=== PATIENT | male | born 1955 | race Caucasian/White ===

== ENCOUNTER 2017-01-15 06:39 | Emergency (ER) | payer OTHER ==
[~2017-01-15] VITALS: Ht 180.3 cm; Wt 105.2 kg
[~2017-01-15 06:39] MED LIST: AMLODIPINE10 MG PO; ASPIRIN CHILDRE81 MG PO; BACTRIM DS 8001 TAB PO; CIPRO 500MG TA500 MG PO; CYCLOBENZAPRINE10 M1 PO; FENTANYL TR50 MCG/HR TOP; FUROSEMIDE20 MG PO; KETOROLAC TROME10 M1 PO; OXYCODONE HCL5 M1 PO; OXYCODONE HCL5 M2 PO; OXYCODONE HYDRO15 MG PO; PANTOPRAZOLE SO40 M1 PO; TOPROL XL 25MG25 MG PO
[2017-01-15] MEDS ORDERED: GABAPENTIN100 M2 PO (06:52)
[2017-01-15] MEDS ORDERED: METOPROLOL SUC100 M2 PO (06:52)
[2017-01-15] MEDS ORDERED: LYRICA150 M1 PO (06:53)
[2017-01-15] MEDS ORDERED: BROMPHENIR-PSE118 ML PO (06:54)
[2017-01-15] MEDS ORDERED: AMLODIPINE BESY10 M1 PO (06:56)
--- NOTE | 2017-01-15 07:22 | ED GENERAL ADULT ---
History of Present Illness General Chief Complaint: General Adult Stated Complaint: PT AMB TO [facility] STATES LEG HURTS CANT WALK,C/P Source: patient, old records Exam Limitations: no limitations Vital Signs & Intake/Output Vital Signs & Intake/Output Vital Signs Date Time Temp Pulse Resp B/P Pulse O2 O2 Flow FiO2 Ox Delivery Rate 01/15 1102 62 16 166/78 99 Room Air 01/15 0849 97.8 70 18 172/80 100 Room Air 01/15 0650 Room Air 01/15 0650 97.2 72 20 177/87 99 Room Air Allergies Coded Allergies: Penicillins (UNKNOWN SINCE CHILDHOOD 07/03/16) Reconcile Medications Amlodipine Besylate (Amlodipine) 10 MG TABLET 1 TAB PO DAILY BP (Reported) Amlodipine Besylate 10 MG TABLET 1 TAB PO DAILY HTN (Reported) Brompheniramine/Pseudoephed/Dm (Hkqjvukcia-Zwwolfdqwvv-Nd Syr) 2 MG-30 MG-10 MG/ 5 ML SYRUP 5 ML PO Q6 SORE THROAT (Reported) Gabapentin 100 MG CAPSULE 1 CAP PO TID NERVE PAIN (Reported) Metoprolol Succ XL (Toprol XL 25MG) 50 MG TAB.ER.24H 1 TAB PO DAILY BP ( Reported) Metoprolol Succinate 100 MG TAB.ER.24H 1 TAB PO DAILY HTN (Reported) Oxycodone HCl 5 MG CAPSULE 1 CAP PO Q6P PAIN Oxycodone HCl 5 MG TABLET 1 TAB PO BIDP PRN PAIN Pantoprazole Sodium 40 MG TABLET.DR 1 TAB PO DAILY GI (Reported) Pregabalin (Lyrica) 150 MG CAPSULE 1 CAP PO BID COPD (Reported) Triage Note: PT TO TRIAGE C/O LEG PAIN, R ARM PAIN, BACK PAIN, AND CHEST PAIN. PT HAS HX OF ARTHRITIS AND IS TAKING GABAPENTIN. Triage Nurses Notes Reviewed? yes HPI: Patient has known neuropathy and was recently started on Neurontin for it. Patient also has chronic back pain secondary to stenosis. Patient has been having increasing pain in his back and states that the neuropathy is getting worse. Patient has been trying to see pain management but has been unable to see anybody yet. The pain in his back is in his low back that increases with movement. There is no radiation. The pain is constant. The pain is sharp and aching in nature. He rates the pain as 8 out of 10. Patient also states that for the past 2 days he has been getting intermittent tightness in the right side of his chest which radiates to his right arm. Patient states that he feels short of breath when he gets these symptoms. The tightness lasts approximately 4-5 hours before he goes away. There are no aggravating or mitigating factors. He rates the tightness as 4 out of 10. Past History Travel History Traveled to [place] past 21 day No Medical History Any Pertinent Medical History? see below for history Neurological: NONE EENT: NONE Cardiovascular: hypertension Respiratory: COPD Gastrointestinal: NONE Hepatic: NONE Renal: NONE Musculoskeletal: gout, ARTHRITIS KNEE ISSUES, CCPD RIGHT KNEE Psychiatric: NONE Endocrine: NONE Blood Disorders: HEP C Tetanus Vaccine: 08/20/14 Surgical History Surgical History: non-contributory Psychosocial History What is your primary language Urdu Tobacco Use: Current Daily Use Daily Tobacco Use Amount/Type: => 5 Cigarettes daily ETOH Use: occasional use Illicit Drug Use: denies illicit drug use Family History Hx Contributory? No Review of Systems Review of Systems Constitutional: Reports: no symptoms. EENTM: Reports: no symptoms. Respiratory: Reports: no symptoms. Cardiovascular: Reports: see HPI, chest pain. GI: Reports: no symptoms. Genitourinary: Reports: no symptoms. Musculoskeletal: Reports: see HPI, joint pain, muscle pain. Skin: Reports: no symptoms. Neurological/Psychological: Reports: see HPI. Hematologic/Endocrine: Reports: no symptoms. Immunologic/Allergic: Reports: no symptoms. All Other Systems: Reviewed and Negative Physical Exam Physical Exam General Appearance: well developed/nourished, alert, awake, anxious, mild distress Head: atraumatic, normal appearance Eyes: Bilateral: PERRL, EOMI. Ears, Nose, Throat: normal pharynx, normal ENT inspection, hearing grossly normal Neck: normal inspection, supple, full range of motion, no midline tenderness Respiratory: normal breath sounds, chest non-tender, no respiratory distress, lungs clear Cardiovascular: regular rate/rhythm, normal peripheral pulses Gastrointestinal: normal bowel sounds, soft, non-tender, no organomegaly Back: normal inspection, normal range of motion Extremities: normal inspection, normal capillary refill, normal range of motion, no edema Neurologic/Psych: awake, alert, oriented x 3, normal mood/affect, DECREASED SENSATION B/L LE FROM ANKLES TO FEET. Skin: intact, normal color, warm/dry Lymphatic: no anterior cervical charbel Core Measures ACS in differential dx? Yes ASA ordered for poss ACS? No-ACS ruled out CVA/TIA Diagnosis: No Severe Sepsis Present: No Septic Shock Present: No Progress Differential Diagnoses I considered the following diagnoses in my evaluation of the patient: [AMI, PE, NEUROPATHY, ACUTE EXACERBATION OF CHRONIC PAIN.] Plan of Care: Orders Procedure Date/time Status Heart Healthy Diet 01/15 L Active TROPONIN LEVEL 01/15 1039 Complete EKG 01/15 1039 Active TROPONIN LEVEL 01/15 0651 Complete LIPASE 01/15 0651 Complete HEPATIC FUNCTION PANEL 01/15 0651 Complete D-DIMER 01/15 0651 Complete CBC WITHOUT DIFFERENTIAL 01/15 651 Complete BASIC METABOLIC PANEL 01/15 651 Complete AMYLASE 01/15 06 Complete EKG 01/15 0641 Active Laboratory Tests 01/15/17 1100: Troponin I < 0.01 01/15/17 0704: Anion Gap 12, Estimated GFR > 60, BUN/Creatinine Ratio 26.3 H, Glucose 134 H, Calcium 9.4, Total Bilirubin 0.9, Direct Bilirubin 0.4, AST 51, ALT 36, Alkaline Phosphatase 81, Troponin I < 0.01, Total Protein 8.3 H, Albumin 4.4, Amylase 57 , Lipase 244, D-Dimer 536 H, CBC w Diff NO MAN DIFF REQ, RBC 4.70, MCV 93.1, MCH 32.2 H, RDW 12.9, MPV 7.5, Gran % 51.0, Lymphocytes % 36.9, Monocytes % 8.4 , Eosinophils % 3.0, Basophils % 0.7, Absolute Granulocytes 3.3, Absolute Lymphocytes 2.4, Absolute Monocytes 0.5, Absolute Eosinophils 0.2, Absolute Basophils 0, PUBS MCHC 34.5 Diagnostic Imaging: Viewed by Me: Radiology Read. Discussed w/RAD: Radiology Read. Radiology Impression: PATIENT: KENZIE HIDALGO PRESENT AGE: 62 PATIENT ACCOUNT NO: [id number] : 56 LOCATION: [facility] ORDERING PHYSICIAN: JASS RODRÍGUEZ MD SERVICE DATE: 01/15/170754 EXAM TYPE: CAT - CTA CHEST-PULMONARY EMBOLISM EXAMINATION: CT ANGIOGRAM CHEST WITHOUT AND WITH CONTRAST (CT PULMONARY ANGIOGRAM FOR PE) CLINICAL INFORMATION: Chest pain, dyspnea and positive D-dimer. COMPARISON: None TECHNIQUE: Prior to contrast administration, noncontrast localization images were obtained. Subsequently, multidetector volumetric imaging was performed from the thoracic inlet to below the diaphragms following the administration of 95 mL Optiray 350 intravenous contrast. No contrast reaction reported Sagittal, coronal, and MIP oblique sagittal reformatted images were obtained on the CT workstation, uploaded to PACS, and reviewed. TOTAL EXAM DLP: 585 mGy-cm FINDINGS: QUALITY OF STUDY/CONTRAST BOLUS: Excellent. PULMONARY ARTERIES: No central or segmental pulmonary emboli. THORACIC AORTA: No aneurysm or dissection. LUNG: Both lungs are well inflated. There is a patchy ill-defined density right upper lobe, image 117 series 4; focal ground-glass density left upper lobe, image 184 series 4; 4 mm linear density right minor fissure, image 207 series 4; 4 mm nodule right upper lobe, image 122 series 4; and patchy atelectasis right middle lobe, image 325 series 4. PLEURA: No pleural effusion or pneumothorax. MEDIASTINUM: Normal heart size. No pericardial effusion. No hilar or mediastinal lymphadenopathy. No evidence of septal bowing or right heart strain. CHEST WALL/AXILLA: No axillary or internal mammary lymphadenopathy. OSSEOUS STRUCTURES: There is mild spondylosis. No lytic process seen. UPPER ABDOMEN: Unremarkable. No reflux of contrast into the hepatic veins to suggest elevated right heart pressures. IMPRESSION: No evidence of PE or aortic aneurysm. No aortic dissection. Ill- defined density right upper lobe and a patchy ground-glass density left upper lobe. These are nonspecific and may represent developing infiltrate. There is a subpleural-based nodule right upper lobe posteriorly. Recommend CT chest follow up in 3 to 6 months. Minimal atelectatic changes right middle lobe. DICTATED BY: DANIEL WINN MD DATE/TIME DICTATED:01/15/17918 CONTRACT LEAD:JARRETT DATE/TIME TRANSCRIBED:01/15/17918 CONFIDENTIAL, DO NOT COPY WITHOUT APPROPRIATE AUTHORIZATION. <Electronically signed in Other Vendor System> SIGNED BY: DANIEL WINN MD 01/15/17 1050 CXR Impression: PATIENT: KENZIE HIDALGO PRESENT AGE: 62 PATIENT ACCOUNT NO: [id number] : 56 LOCATION: [facility] ORDERING PHYSICIAN: RAINE VAZQUEZ MD SERVICE DATE: 01/15/17 EXAM TYPE: RAD - XRY- PORTABLE CHEST XRAY EXAMINATION: XR PORTABLE CHEST CLINICAL INFORMATION: Chest pain. COMPARISON: Chest 08/20/2016 TECHNIQUE: Portable AP view of the chest was obtained. FINDINGS: Both lungs are fairly well-expanded and clear of acute process. The heart size and pulmonary vascularity is normal. No gross bony abnormality seen. IMPRESSION: Unremarkable chest exam. No change from 2015. DICTATED BY: DANIEL WINN MD DATE/TIME DICTATED:01/15/17724 CONTRACT LEAD:JARRETT DATE/TIME TRANSCRIBED:01/15/17724 CONFIDENTIAL, DO NOT COPY WITHOUT APPROPRIATE AUTHORIZATION. <Electronically signed in Other Vendor System> SIGNED BY: DANIEL WINN MD 01/15/17729 Initial ED EKG: NSR, no ST T wave changes Prior EKG: unchanged Rhythm Strip: normal sinus rhythm Departure Departure Disposition: HOME OR SELF CARE Condition: Stable Clinical Impression Primary Impression: Neuropathy Secondary Impressions: Chest pain Qualifiers: Chest pain type: other chest pain Qualified Code: R07.89 - Other chest pain Referrals: SHREYAS RODRIGUEZ DO (PCP/Family) Additional Instructions: FOLLOW UP WITH PAIN MANAGEMENT RETURN IF SYMPTOMS WORSEN OR FOR ANY CONCERNS Departure Forms: Customer Survey General Discharge Information Prescriptions: Current Visit Scripts Oxycodone HCl/Acetaminophen (Percocet 5-325 MG Tablet) 1-2 TAB PO Q6P PRN PAIN #20 TAB Critical Care Note Critical Care Note Critical Care Time: non-applicable
--- NOTE | 2017-01-15 07:30 | RADIOLOGY REPORT ---
EXAMINATION: XR PORTABLE CHEST CLINICAL INFORMATION: Chest pain. COMPARISON: Chest 08/20/2016 TECHNIQUE: Portable AP view of the chest was obtained. FINDINGS: Both lungs are fairly well-expanded and clear of acute process. The heart size and pulmonary vascularity is normal. No gross bony abnormality seen. IMPRESSION: Unremarkable chest exam. No change from 08/20/2016.
[2017-01-15 07:32] LABS: ABSOLUTE BASOPHIL COUNT 0 /CUMM (0.0-0.2); ABSOLUTE EOSINOPHIL COUNT 0.2 /CUMM (0.0-0.7); ABSOLUTE GRANULOCYTE CT 3.3 /CUMM (1.4-6.5); ABSOLUTE LYMPH COUNT 2.4 /CUMM (1.2-3.4); ABSOLUTE MONOCYTE COUNT 0.5 /CUMM (0.10-0.60); BASOPHIL % 0.7 % (0.0-2.0); HEMATOCRIT 43.7 % (42-52); MEAN CORPUSCULAR HGB 32.2 PG (27.0-31.0); MEAN CORPUSCULAR HGB CONC 34.5 G/DL (33.0-37.0); MEAN CORPUSCULAR VOLUME 93.1 FL (80.0-94.0); MEAN PLATELET VOLUME 7.5 FL (7.4-10.4); PLATELET COUNT 111 /CUMM (130-400); RBC DISTRIBUTION WIDTH 12.9 % (11.5-14.5); WHITE BLOOD CELL COUNT 6.4 /CUMM (4.8-10.8)
--- NOTE | 2017-01-15 10:50 | CT SCAN REPORT ---
EXAMINATION: CT ANGIOGRAM CHEST WITHOUT AND WITH CONTRAST (CT PULMONARY ANGIOGRAM FOR PE) CLINICAL INFORMATION: Chest pain, dyspnea and positive D-dimer. COMPARISON: None TECHNIQUE: Prior to contrast administration, noncontrast localization images were obtained. Subsequently, multidetector volumetric imaging was performed from the thoracic inlet to below the diaphragms following the administration of 95 mL Optiray 350 intravenous contrast. No contrast reaction reported Sagittal, coronal, and MIP oblique sagittal reformatted images were obtained on the CT workstation, uploaded to PACS, and reviewed. TOTAL EXAM DLP: 585 mGy-cm FINDINGS: QUALITY OF STUDY/CONTRAST BOLUS: Excellent. PULMONARY ARTERIES: No central or segmental pulmonary emboli. THORACIC AORTA: No aneurysm or dissection. LUNG: Both lungs are well inflated. There is a patchy ill-defined density right upper lobe, image 117 series 4; focal ground-glass density left upper lobe, image 184 series 4; 4 mm linear density right minor fissure, image 207 series 4; 4 mm nodule right upper lobe, image 122 series 4; and patchy atelectasis right middle lobe, image 325 series 4. PLEURA: No pleural effusion or pneumothorax. MEDIASTINUM: Normal heart size. No pericardial effusion. No hilar or mediastinal lymphadenopathy. No evidence of septal bowing or right heart strain. CHEST WALL/AXILLA: No axillary or internal mammary lymphadenopathy. OSSEOUS STRUCTURES: There is mild spondylosis. No lytic process seen. UPPER ABDOMEN: Unremarkable. No reflux of contrast into the hepatic veins to suggest elevated right heart pressures. IMPRESSION: No evidence of PE or aortic aneurysm. No aortic dissection. Ill-defined density right upper lobe and a patchy ground-glass density left upper lobe. These are nonspecific and may represent developing infiltrate. There is a subpleural-based nodule right upper lobe posteriorly. Recommend CT chest follow up in 3 to 6 months. Minimal atelectatic changes right middle lobe.
[2017-01-15 11:02] VITALS: BP 166/78
[2017-01-15] MEDS ORDERED: PERCOCET 5-3251 EACH PO (11:50)
== END 2017-01-15 11:57 ==
LOC: ERH 06:39
PROVIDERS: Pediatrics
DX: G62.9 Polyneuropathy, unspecified (principal); R07.9 Chest pain, unspecified
CPT/HCPCS: 93005; 93010

== ENCOUNTER 2017-03-14 10:53 | Emergency (ER) | payer OTHER ==
[~2017-03-14] VITALS: Ht 180.3 cm; Wt 108.9 kg
[~2017-03-14 10:53] MED LIST changes: +AMLODIPINE BESY10 M1 PO; +BROMPHENIR-PSE118 ML PO; +GABAPENTIN100 M2 PO; +LYRICA150 M1 PO; +METOPROLOL SUC100 M2 PO; +PERCOCET 5-3251 EACH PO
--- NOTE | 2017-03-14 11:53 | ED UPPER/LOWER EXTREMITY COMPL ---
History of Present Illness General Chief Complaint: General Adult Stated Complaint: L ARM SORENESS X 1MONTH Source: patient, old records Exam Limitations: no limitations Vital Signs & Intake/Output Vital Signs & Intake/Output Vital Signs Date Time Temp Pulse Resp B/P B/P Pulse O2 O2 Flow FiO2 Mean Ox Delivery Rate 03/14 1339 Room Air 03/14 1236 98.2 88 19 137/72 99 Room Air 03/14 1057 98.1 87 20 148/79 98 Room Air Allergies Coded Allergies: Penicillins (UNKNOWN SINCE CHILDHOOD 07/03/16) Reconcile Medications Amlodipine Besylate 10 MG TABLET 1 TAB PO DAILY HTN (Reported) Diclofenac W/ Misoprostol (Arthrotec 75 MG-200 Mcg Tab) 75 MG-200 MCG TAB.IR.DR 1 TAB PO BID ARTHRITIS (Reported) Gabapentin 100 MG CAPSULE 1 CAP PO TID NERVE PAIN (Reported) Metoprolol Succinate 100 MG TAB.ER.24H 1 TAB PO DAILY HTN (Reported) Oxycodone HCl 5 MG TABLET 1 TAB PO BIDP PRN PAIN Pantoprazole Sodium 40 MG TABLET.DR 1 TAB PO DAILY GI (Reported) Pregabalin (Lyrica) 150 MG CAPSULE 1 CAP PO BID COPD (Reported) Triage Note: PT C/O THROBBING PAIN IN LEFT ARM X 1 MONTH. PT DENIES TRAUMA, STATES THE PAIN IS CONSTANT AND KEPT HIM UP ALL LAST NIGHT Triage Nurses Notes Reviewed? yes Onset: Gradual Duration: week(s): (4), constant Timing: recent history Severity: moderate Severity Numbers: 6 Pain/Injury Location: Left: Shoulder. Method of Injury: unknown Modifying Factors: Worsens With: movement. Associated Symptoms: none HPI: 62-year-old male presents emergency room with history of chronic back pain for cheese and pain management complaining of a one-month history of left shoulder pain. He denies any known injury or trauma however states the pain is worse with range of motion better at rest he is not sought care for the symptoms until today. He denies chest pain shortness of breath numbness tingling. He is not taken anything for his pain in his shoulder he denies any swelling to the arm no rashes to the skin. No neck pain jaw pain. Symptoms been intermittent in nature over the past 1 month worse with range of motion of the arm. (YONG STANLEY,RADHA) Past History Travel History Traveled to [place] past 21 day No Medical History Any Pertinent Medical History? see below for history Neurological: NONE EENT: NONE Cardiovascular: hypertension Respiratory: COPD Gastrointestinal: NONE Hepatic: NONE Renal: NONE Musculoskeletal: gout, ARTHRITIS KNEE ISSUES CCPD RIGHT KNEE Psychiatric: NONE Endocrine: NONE Blood Disorders: HEP C, CIRRHOSIS Tetanus Vaccine: 08/20/14 Surgical History Surgical History: non-contributory Psychosocial History What is your primary language Paraguayan Tobacco Use: Current Daily Use Daily Tobacco Use Amount/Type: => 5 Cigarettes daily ETOH Use: denies use Illicit Drug Use: denies illicit drug use Family History Hx Contributory? No (RADHA CRAFT) Review of Systems Review of Systems Constitutional: Reports: see HPI. All Other Systems: Reviewed and Negative Comments Review of systems: See HPI, All other systems negative. Constitutional, no chills no fever, no malaise no weight loss HEENT: No visual changes no sore throat no congestion, no ear pain Cardiovascular: No chest pain , no palpitation Skin: no rashes, no change in skin Respiratory: No dyspnea no cough no sputum no hemoptysis GI: No nausea no vomiting, no diarrhea, no bloating/constipation : No dysuria Muscle skeletal: joint pain, no joint swelling, back pain, no neck pain, Neurologic: No numbness no headache Psych: No stress Heme/endocrine: No bruising no bleeding Immunology: No lymphadenopathy (RADHA CRAFT) Physical Exam Physical Exam General Appearance: well developed/nourished, no apparent distress, alert, awake Comments: Well-developed well-nourished person in no acute distress HEENT: Normal EENT exam; PERRL, EOMI, HEAD is atraumatic. moist mucous membranes. Neck: Supple, normal range of motion Back: Nontender, no CVA tenderness. Full range of motion Cardiovascular: Regular rate and rhythms no murmurs rubs Respiratory: Chest nontender.There were no bony deformities, no asymmetry. No respiratory distress. Patient speaking in full complete sentences. Breath sounds clear to auscultation bilaterally: NO W/R/R Abdomen: Soft, nontender nondistended Shoulder: Atraumatic/Stable. Limited range of motion secondary to pain and left shoulder no swelling no obvious deformity Elbow: Atraumatic/stable. FROM. No laxity Upper arm/Forearm: Atraumatic. Nontender. No edema, 5 out of 5 brownfield program coordinator strength noted to bilateral upper extremities Hand/Wrist: Atraumatic/stable. Skin intact. FROM Pulses: Normal/equal radial pulses bilaterally. Brisk cap refill Lower Extremity: No edema, full range of motion of extremities, normal and equal pulses bilaterally, 5 out of 5 strength noted to bilateral lower extremities Neuro: Alert oriented x3, motor sensory normal, There were no obvious focal neurologic abnormalities. Skin: No appreciable rash on exposed skin, skin is warm and dry. Psych: Mood and affect is normal, memory and judgment is normal. (RADHA CRAFT) Progress Differential Diagnosis: compartment syndrome, contusion, dislocation, DVT, fracture, gout, sprain, tendon injury Plan of Care: Orders Procedure Date/time Status XRY-SHOULDER COMPLETE-LEFT 03/14 1223 Active Patient is declining anything for pain when offered I discussed with the patient at length all of their results. I had an extensive conversation regarding need for close follow up with their primary care physician this week as well as return precautions. I answered all of their questions, they feel comfortable with the plan and follow-up care. I discussed the medications that they will receive with the patient. I gave them signs and symptoms that could indicate an adverse reaction. I have advised them to limit their activities until they can see how they respond to the medication. (RADHA CRAFT) Diagnostic Imaging: Viewed by Me: Radiology Read. Discussed w/RAD: Radiology Read. Radiology Impression: PATIENT: KENZIE HIDALGO PRESENT AGE: 62 PATIENT ACCOUNT NO: [id number] : 56 LOCATION: [facility] ORDERING PHYSICIAN: RADHA STANLEY SERVICE DATE: 03/14/17 EXAM TYPE: RAD - XRY-SHOULDER COMPLETE-LEFT EXAMINATION: XR SHOULDER, LEFT CLINICAL INFORMATION: Left shoulder pain x1 month. COMPARISON: None TECHNIQUE: AP external rotation, Grashey, scapular Y, and axillary views of the left shoulder. FINDINGS: Subcortical cystic changes at the greater tuberosity are likely related to overlying tendinopathy. No fracture. Glenohumeral and acromioclavicular alignment is anatomic with normal joint space. No abnormal soft tissue calcifications. Soft tissues are unremarkable. IMPRESSION: Subcortical cystic changes at the greater tuberosity of the humeral head, likely due to chronic overlying rotator cuff tendinopathy. No acute osseous abnormalities or significant degenerative arthritis. DICTATED BY: LOLIS ALONZO MD DATE/TIME DICTATED:03/14/171313 FEATHER STITCHER:JARRETT DATE/TIME TRANSCRIBED:03/14/171313 CONFIDENTIAL, DO NOT COPY WITHOUT APPROPRIATE AUTHORIZATION. <Electronically signed in Other Vendor System> SIGNED BY: LOLIS ALONZO MD 03/14/17 1319 (RADHA CRAFT) Departure Departure Time of Disposition: 1326 Disposition: HOME OR SELF CARE Condition: Stable Clinical Impression Primary Impression: Chronic shoulder pain Referrals: SHREYAS RODRIGUEZ DO (PCP/Family) CARLOS RANGEL MD Additional Instructions: follow up with orthopedist dr rangel, rest, ice, continue taking your pain medication as prescribed. return with any concerns Departure Forms: Customer Survey General Discharge Information (RADHA CRAFT) PA/ASSEMBLY MACHINE SET UP MECHANIC Co-Sign Statement Statement: ED Attending supervision documentation- [] I saw and evaluated the patient. I have also reviewed all the pertinent lab results and diagnostic results. I agree with the findings and the plan of care as documented in the PA's/ASSEMBLY MACHINE SET UP MECHANIC's documentation. [X] I have reviewed the ED Record and agree with the PA's/ASSEMBLY MACHINE SET UP MECHANIC's documentation. [] Additions or exceptions (if any) to the PAs/ASSEMBLY MACHINE SET UP MECHANIC's note and plan are summarized below: [] (KAJAL BOSS DO)
[2017-03-14 12:36] VITALS: BP 137/72
[2017-03-14] MEDS ORDERED: ARTHROTEC 75 M1 EACH PO (12:43)
--- NOTE | 2017-03-14 13:19 | RADIOLOGY REPORT ---
EXAMINATION: XR SHOULDER, LEFT CLINICAL INFORMATION: Left shoulder pain x1 month. COMPARISON: None TECHNIQUE: AP external rotation, Grashey, scapular Y, and axillary views of the left shoulder. FINDINGS: Subcortical cystic changes at the greater tuberosity are likely related to overlying tendinopathy. No fracture. Glenohumeral and acromioclavicular alignment is anatomic with normal joint space. No abnormal soft tissue calcifications. Soft tissues are unremarkable. IMPRESSION: Subcortical cystic changes at the greater tuberosity of the humeral head, likely due to chronic overlying rotator cuff tendinopathy. No acute osseous abnormalities or significant degenerative arthritis.
== END 2017-03-14 13:44 ==
LOC: ERH 10:53
DX: M25.512 Pain in left shoulder (principal)
CPT/HCPCS: 73030-LT

== ENCOUNTER 2017-03-30 05:32 | Emergency (ER) | payer OTHER ==
[~2017-03-30 05:32] MED LIST changes: +ARTHROTEC 75 M1 EACH PO
[2017-03-30 05:40] VITALS: BP 139/89
[2017-03-30] MEDS ORDERED: NORCO 5-325 TA1 EACH PO (05:52)
--- NOTE | 2017-03-30 05:54 | ED UPPER/LOWER EXTREMITY COMPL ---
History of Present Illness General Chief Complaint: Lower Extremity Problems Stated Complaint: LOWER EXTEMITY PAIN THINKS ARTHRITIS Source: patient Exam Limitations: no limitations Vital Signs & Intake/Output Vital Signs & Intake/Output Vital Signs Date Time Temp Pulse Resp B/P B/P Pulse O2 O2 Flow FiO2 Mean Ox Delivery Rate 03/30 0547 96 Room Air Room Air 03/30 0540 99.0 114 22 139/89 96 Room Air Room Air Allergies Coded Allergies: Penicillins (UNKNOWN SINCE CHILDHOOD 07/03/16) Reconcile Medications Amlodipine Besylate 10 MG TABLET 1 TAB PO DAILY HTN (Reported) Diclofenac W/ Misoprostol (Arthrotec 75 MG-200 Mcg Tab) 75 MG-200 MCG TAB.IR.DR 1 TAB PO BID ARTHRITIS (Reported) Gabapentin 100 MG CAPSULE 1 CAP PO TID NERVE PAIN (Reported) Metoprolol Succinate 100 MG TAB.ER.24H 1 TAB PO DAILY HTN (Reported) Oxycodone HCl 5 MG TABLET 1 TAB PO BIDP PRN PAIN Pantoprazole Sodium 40 MG TABLET.DR 1 TAB PO DAILY GI (Reported) Pregabalin (Lyrica) 150 MG CAPSULE 1 CAP PO BID COPD (Reported) Triage Note: 62YO MALE TO RM 3 VIA WHEELCHAIR W/CO BILAT LE PAIN X MONTHS Triage Nurses Notes Reviewed? yes HPI: Patient presents for evaluation of a severe bilateral knee pain secondary to known arthritis. In addition he has chronic back and neck pain and more recently left shoulder pain secondary to a rotator cuff injury. He states that he has had issues with pain management recently because he took many of his pain medication. They are considering whether or not they will continue to care for him at this time. Patient primary care physician no longer provides medications for his chronic pain. Patient's pain is described as severe constant aching pain gets worse with ambulation. He states he just wants to repeat the pain so that he could be functional. Past History Travel History Traveled to [place] past 21 day No Medical History Any Pertinent Medical History? see below for history Neurological: NONE EENT: NONE Cardiovascular: hypertension Respiratory: COPD Gastrointestinal: NONE Hepatic: NONE Renal: NONE Musculoskeletal: gout, ARTHRITIS KNEE ISSUES CCPD RIGHT KNEE Psychiatric: NONE Endocrine: NONE Blood Disorders: HEP C CIRRHOSIS Tetanus Vaccine: 08/20/14 Surgical History Surgical History: non-contributory Psychosocial History What is your primary language Mauritanian Tobacco Use: Refused to answer Family History Hx Contributory? No Review of Systems Review of Systems Constitutional: Reports: no symptoms. EENTM: Reports: no symptoms. Respiratory: Reports: no symptoms. Cardiovascular: Reports: no symptoms. Gastrointestinal/Abdominal: Reports: no symptoms. Genitourinary: Reports: no symptoms. Musculoskeletal: Reports: see HPI. Skin: Reports: no symptoms. Neurological/Psychological: Reports: no symptoms. Hematologic/Endocrine: Reports: no symptoms. Immunological: Reports: no symptoms. All Other Systems: Reviewed and Negative Physical Exam Physical Exam General Appearance: see below Comments: Gen.: Well-nourished, well-developed, no acute respiratory distress. Head: Normocephalic, atraumatic. Eyes: Normal inspection bilaterally Ears: Normal inspection bilaterally Nose: Normal inspection, nasal cannula in place Throat/mouth : Moist mucosa Neck: Supple, full range of motion, no goiter Heart: Regular rate and rhythm Lungs: Quiet respirations Back: Normal range of motion Extremities: Left upper extremity: Normal range of motion with no soft tissue swelling, ecchymoses or erythema. Lower extremities: Evaluation of the knees is unremarkable. No apparent effusion or signs of arthritis. Neurologic: Cranial nerves grossly intact, speech is clear Skin: warm and dry Psychiatric: Calm, cooperative, no apparent delusions or hallucinations Progress Differential Diagnosis: septic arthritis, sprain, arthritis Plan of Care: Continue pain medication and follow-up. Departure Departure Disposition: HOME OR SELF CARE Condition: Stable Clinical Impression Primary Impression: Bilateral knee pain Qualifiers: Chronicity: chronic Qualified Codes: M25.561 - Pain in right knee; M25.562 - Pain in left knee; G89.29 - Other chronic pain Referrals: SHREYAS RODRIGUEZ DO (PCP/Family) Additional Instructions: [place] as prescribed. Follow-up with the pain management physician as soon as possible. Return if any concerns or sudden worsening. Thank you for choosing the [facility] Emergency Department for your care. It was a pleasure to serve you today. Ashish Graham M.D. [facility] Departure Forms: Customer Survey General Discharge Information Prescriptions: Current Visit Scripts Hydrocodone/Acetaminophen ([place] 5-325 Tablet) 1 TAB PO Q6P PRN PAIN #12 TAB
== END 2017-03-30 06:01 ==
LOC: ERH 05:32
DX: M25.561 Pain in right knee (principal); M25.562 Pain in left knee

== ENCOUNTER 2017-04-10 11:02 | Emergency (ER) | payer OTHER ==
[~2017-04-10 11:02] MED LIST changes: +NORCO 5-325 TA1 EACH PO
[2017-04-10 11:08] VITALS: BP 107/65
--- NOTE | 2017-04-10 11:50 | ED UPPER/LOWER EXTREMITY COMPL ---
History of Present Illness General Chief Complaint: Laceration Procedure Stated Complaint: FALL, LAC TO R LEG Source: patient Exam Limitations: no limitations Vital Signs & Intake/Output Vital Signs & Intake/Output Vital Signs Date Time Temp Pulse Resp B/P B/P Pulse O2 O2 Flow FiO2 Mean Ox Delivery Rate 04/10 1108 97.2 74 16 107/65 98 Room Air Allergies Coded Allergies: Penicillins (UNKNOWN SINCE CHILDHOOD 07/03/16) Reconcile Medications Amlodipine Besylate 10 MG TABLET 1 TAB PO DAILY HTN (Reported) Diclofenac W/ Misoprostol (Arthrotec 75 MG-200 Mcg Tab) 75 MG-200 MCG TAB.IR.DR 1 TAB PO BID ARTHRITIS (Reported) Gabapentin 100 MG CAPSULE 1 CAP PO TID NERVE PAIN (Reported) Hydrocodone/Acetaminophen ([place] 5-325 Tablet) 5 MG-325 MG TABLET 1 TAB PO Q6P PRN PAIN Metoprolol Succinate 100 MG TAB.ER.24H 1 TAB PO DAILY HTN (Reported) Oxycodone HCl 5 MG TABLET 1 TAB PO BIDP PRN PAIN Pantoprazole Sodium 40 MG TABLET.DR 1 TAB PO DAILY GI (Reported) Pregabalin (Lyrica) 150 MG CAPSULE 1 CAP PO BID COPD (Reported) Triage Note: PT TO ED STATES HIS LEG GAVE OUT AND HE FELL TO THE GROUND AND HIT THE COFFEE TABLE. DENIES ANY BLOOD THINNERS. APPLIED IN TRIAGE. Triage Nurses Notes Reviewed? yes Onset: Abrupt Duration: constant Timing: single episode today Severity: moderate Severity Numbers: 5 Method of Injury: direct blow, fall, laceration HPI: Patient is a 62-year-old male who presents emergency room stating that he has chronic "bad knees" where today he was in his normal state of health patient states that his "knee gave out" which resulted in him falling and striking the anterior aspect of his right curry to a corner of a coffee table resulting in a laceration. Patient denies any preceding episode of lightheaded sensation dizziness denies any head strike. Tetanus is up-to-date. No medications given prior to arrival. Patient states that ambulation makes worse. (LEONEL STANLEY,RADHA) Past History Travel History Traveled to [place] past 21 day No Medical History Any Pertinent Medical History? see below for history Neurological: NONE EENT: NONE Cardiovascular: hypertension Respiratory: COPD Gastrointestinal: NONE Hepatic: NONE Renal: NONE Musculoskeletal: gout, ARTHRITIS KNEE ISSUES CCPD RIGHT KNEE Psychiatric: NONE Endocrine: NONE Blood Disorders: HEP C CIRRHOSIS Tetanus Vaccine: 08/20/14 Surgical History Surgical History: non-contributory Psychosocial History What is your primary language Comoran Tobacco Use: Current Daily Use Daily Tobacco Use Amount/Type: => 5 Cigarettes daily Family History Hx Contributory? No (RADHA GARCIA) Review of Systems Review of Systems Constitutional: Reports: no symptoms. EENTM: Reports: no symptoms. Respiratory: Reports: no symptoms. Cardiovascular: Reports: no symptoms. Gastrointestinal/Abdominal: Reports: no symptoms. Genitourinary: Reports: no symptoms. Musculoskeletal: Reports: see HPI. Skin: Reports: see HPI. Neurological/Psychological: Reports: no symptoms. Hematologic/Endocrine: Reports: see HPI, bleeding. Immunological: Reports: no symptoms. All Other Systems: Reviewed and Negative (RADHA GARCIA) Physical Exam Physical Exam General Appearance: no apparent distress Neurologic/Tendon: normal sensation, normal motor functions, normal tendon functions, responds to pain, no evidence tendon injury, no pulse deficit Skin: normal color, warm/dry Comments: Well-developed well-nourished no apparent distress. HEENT: Atraumatic, extraocular motion intact Neck: Supple, no lymphadenopathy Back: Nontender Respiratory: No respiratory distress Neuro: Alert and oriented x3 Psych: Mood affect normal, normal memory normal judgment. Diagram Legs Front/Back 1) 3 cm subcutaneous linear laceration noted no active bleeding mild generalized point tenderness noted full active range of motion and resisted range of motion noted with dorsiflexion of right ankle no exposed bone no exposed tendon no tendon deficit 2) Please revise that the wound was 2 cm (RADHA GARCIA) Progress Differential Diagnosis: arterial insufficiency, compartment syndrome, contusion, dislocation, DVT, fracture, gout, septic arthritis, sprain, tendon injury Plan of Care: Orders Procedure Date/time Status [id number], RIGHT 04/10 1202 Active Patient was offered pain medications and declines No osseous injury noted on x-ray findings. Patient tolerated suture placement well. Patient had normal steady gait on discharge (RADHA GARCIA) Diagnostic Imaging: Viewed by Me: Radiology Read. Radiology Impression: no acute abnormality, no fracture Comments: PATIENT: KENZIE HIDALGO PRESENT AGE: 62 PATIENT ACCOUNT NO: [id number] : 56 LOCATION: [facility] ORDERING PHYSICIAN: RADHA STANLEY SERVICE DATE: 04/10/17 EXAM TYPE: RAD - [id number], RIGHT EXAMINATION: XR TIBIA AND FIBULA, RIGHT CLINICAL INFORMATION: Right tibial trauma. Laceration. Rule out fracture. COMPARISON: None TECHNIQUE: AP and lateral views of the right tibia and fibula were obtained. FINDINGS: No evidence of fracture or dislocation. The right knee joint and ankle joint alignments are normal. There is right knee chondrocalcinosis. No soft tissue air or radiopaque foreign body is seen in the right leg. The osseous structures essentially appear unremarkable. A tiny posterior calcaneal spur is noted at the insertion of Achilles tendon. IMPRESSION: No evidence of acute fracture or dislocation in the right leg. DICTATED BY: MADALYN GUTIÉRREZ MD DATE/TIME DICTATED:04/10/171307 CHARGEBACK ANALYST:JARRETT DATE/TIME TRANSCRIBED:04/10/171307 (LEONEL STANLEY,RADHA) Departure Departure Disposition: HOME OR SELF CARE Condition: Stable Clinical Impression Primary Impression: Laceration of right lower leg Referrals: SHREYAS RODRIGUEZ DO (PCP/Family) Additional Instructions: As discussed begin to apply bacitracin to the area once a day for the following 4 days then leave area dry and clean and open to improve healing. If you note signs of infection redness, pain, swelling, discharge return to emergency room. Return to emergency room in 7-10 days for suture removal. Departure Forms: Customer Survey General Discharge Information (RADHA GARCIA) PA/GAS REFRIGERATOR SERVICER Co-Sign Statement Statement: ED Attending supervision documentation- [] I saw and evaluated the patient. I have also reviewed all the pertinent lab results and diagnostic results. I agree with the findings and the plan of care as documented in the PA's/GAS REFRIGERATOR SERVICER's documentation. [X] I have reviewed the ED Record and agree with the PA's/GAS REFRIGERATOR SERVICER's documentation. [] Additions or exceptions (if any) to the PAs/GAS REFRIGERATOR SERVICER's note and plan are summarized below: [] (ANNE TORO,JASS Busch) Procedures Laceration/Wound Repair Laceration/Wound Repair: Wound Location: lower extremity (RIGHT LOWER EXTREMITY) Wound's Depth, Shape: linear, subcutaneous Wound Length (cm): 2 Wound Explored: clean, no foreign body removed, irrigated extensively Irrigated w/ Saline (ccs): 500 Betadine Prep? Yes Anesthesia: 1% lidocaine Volume Anesthetic (ccs): 5 Wound Repaired With: sutures Suture Size/Type: 4:0 Number of Sutures: 4 Progress: Margins were revised with suture placement, patient tolerated well, bacitracin bandage was applied. (LEONEL STANLEY,RADHA)
--- NOTE | 2017-04-10 13:13 | RADIOLOGY REPORT ---
EXAMINATION: XR TIBIA AND FIBULA, RIGHT CLINICAL INFORMATION: Right tibial trauma. Laceration. Rule out fracture. COMPARISON: None TECHNIQUE: AP and lateral views of the right tibia and fibula were obtained. FINDINGS: No evidence of fracture or dislocation. The right knee joint and ankle joint alignments are normal. There is right knee chondrocalcinosis. No soft tissue air or radiopaque foreign body is seen in the right leg. The osseous structures essentially appear unremarkable. A tiny posterior calcaneal spur is noted at the insertion of Achilles tendon. IMPRESSION: No evidence of acute fracture or dislocation in the right leg.
== END 2017-04-10 13:23 ==
LOC: ERH 11:02
DX: S81.821A Laceration with foreign body, right lower leg, initial encounter (principal); W22.03XA Walked into furniture, initial encounter; Y93.01 Activity, walking, marching and hiking; Y92.9 Unspecified place or not applicable
CPT/HCPCS: 73590-RT

== ENCOUNTER 2017-05-01 09:27 | Emergency (ER) | payer OTHER ==
[~2017-05-01] VITALS: Ht 180.3 cm; Wt 104.8 kg
[2017-05-01 09:32] VITALS: BP 139/79
--- NOTE | 2017-05-01 09:58 | ED GENERAL ADULT ---
History of Present Illness General Chief Complaint: Lower Extremity Injury Stated Complaint: RT HIP PAIN NO INJURY Source: patient Exam Limitations: no limitations Vital Signs & Intake/Output Vital Signs & Intake/Output Vital Signs Date Time Temp Pulse Resp B/P B/P Pulse O2 O2 Flow FiO2 Mean Ox Delivery Rate 05/01 1012 99 Room Air 05/01 0932 97.7 84 18 139/79 96 Room Air Allergies Coded Allergies: Penicillins (UNKNOWN SINCE CHILDHOOD 07/03/16) Reconcile Medications Albuterol Sulfate (Proair Hfa) 90 MCG HFA.AER.AD 2 PUF INH Q4-6 PRN PRN COPD (Reported) Albuterol Sulfate 2.5 MG/3 ML (0.083 %) VIAL.NEB 1 Vial INH/CUCA Q4P PRN COPD (Reported) Amlodipine Besylate 10 MG TABLET 1 TAB PO DAILY HTN (Reported) Aspirin (Aspirin*) 81 MG TAB.CHEW 1 TAB PO DAILY HEART HEALTH (Reported) Diclofenac W/ Misoprostol (Arthrotec 75 MG-200 Mcg Tab) 75 MG-200 MCG TAB.IR.DR 1 TAB PO BID ARTHRITIS (Reported) Gabapentin 100 MG CAPSULE 1 CAP PO TID NERVE PAIN (Reported) Metoprolol Succinate 100 MG TAB.ER.24H 1 TAB PO DAILY HTN (Reported) Morphine Sulfate 30 MG TABLET 1 TAB PO TID PAIN (Reported) Multivitamin (Daily Multiple Vitamin) 1 EACH TABLET 1 TAB PO DAILY VITAMIN SUPPORT (Reported) Pantoprazole Sodium 40 MG TABLET.DR 1 TAB PO DAILY GI (Reported) Pregabalin (Lyrica) 150 MG CAPSULE 1 CAP PO BID COPD (Reported) Triage Note: PT HERE WITH RIGHT HIP PAIN STATES PAIN FOR SINCE TUESDAY. PT DOES NOT REMEMBER ANY INJURY. PT STATES HE HAS BEEN RIDING HIS BIKE FOR EXCERISE LATELY AND UNSURE IF HE DID SOMETHING TO HIMSELF. Triage Nurses Notes Reviewed? yes Onset: Gradual Duration: day(s): (3) Timing: recent history Injury Environment: home Severity: severe Severity Numbers: 10 Modifying Factors: Improves With: immobilization. Worsens With: movement. HPI: Patient is a 62-year-old male with history of chronic pain, hypertension, hepatitis C presenting to the emergency department with chief complaint of worsening right hip pain over the past 3 days. Patient reports that he fell, mechanically, about 2-3 weeks ago and landed on the lower aspect of his right leg was seen and evaluated and had sutures placed on his right curry. Denies falling directly on the right hip. Has been ambulatory since but reports pain over the past couple days. Pain radiates down the leg intermittently. Pain worse with ambulation. Has been taking his daily prescribed morphine with little relief in his right hip pain. Denies abdominal pain. No urinary incontinence or retention. No numbness or tingling. Denies any head injury or LOC with the fall 3 weeks ago. Denies any lower extremity weakness. Patient has been riding his bike more often recently over the past couple weeks. Denies any specific falls. Denies any saddle paresthesias. (FRANCHESKA JANE) Past History Travel History Traveled to [place] past 21 day No Medical History Any Pertinent Medical History? see below for history Neurological: NONE EENT: NONE Cardiovascular: hypertension Respiratory: COPD Gastrointestinal: NONE Hepatic: NONE Renal: NONE Musculoskeletal: gout, ARTHRITIS KNEE ISSUES CCPD RIGHT KNEE Psychiatric: NONE Endocrine: NONE Blood Disorders: HEP C CIRRHOSIS Tetanus Vaccine: 08/20/14 Surgical History Surgical History: non-contributory Psychosocial History What is your primary language Uzbek Tobacco Use: Current Daily Use Daily Tobacco Use Amount/Type: => 5 Cigarettes daily ETOH Use: occasional use Illicit Drug Use: denies illicit drug use Family History Hx Contributory? No (FRANCHESKA JANE) Review of Systems Review of Systems Constitutional: Reports: no symptoms. Comments Review of systems: See HPI, All other systems negative. Constitutional, no chills fever or weight loss HEENT: No visual changes no sore throat no congestion Cardiovascular: No chest pain ,palpitation Skin, no jaundice no rashes Respiratory: No dyspnea cough GI: No nausea no vomiting : No dysuria No hematuria Muscle skeletal: no back pain, no neck pain, Neurologic: No numbness Psych: No stress anxiety Immunology: No splenectomy or history of AIDS (FRANCHESKA JANE) Physical Exam Physical Exam General Appearance: well developed/nourished, no apparent distress, alert, awake , comfortable Comments: Well-developed well-nourished person in no acute distress HEENT: Pupils equally round and reactive to light and accommodation. Nose is atraumatic. Neck: Supple, no lymphadenopathy, normal range of motion without pain or tenderness, no C-spine tenderness. Back: Mildly tender to palpation over the lumbar paraspinal region. No bony tenderness over the lumbar, thoracic or cervical spine. Cardiovascular: Regular rate and rhythms no murmurs rubs or gallops, normal JVP Respiratory: Chest nontender. No respiratory distress.breath sounds clear to auscultation bilaterally Abdomen: Soft, nontender nondistended, no appreciable organomegaly. Normal bowel sounds. No ascites, large ventral hernia palpated, reducible. Extremity: Tender to palpation over the right greater trochanter, pain with right straight leg raise. No calf pain to palpation bilaterally. Pedal pulses are 2+ bilaterally. Nonpitting edema present to lower extremity is bilaterally. Full range of motion of upper extremities without difficulty. Full range of motion of left lower extremity without difficulty or pain. Neuro: Alert oriented x3, motor sensory normal, patellar reflexes are 2+ bilaterally. Skin: Healing linear vertical approximately 4 cm laceration noted over the mid aspect of the right curry, scabbing, no surrounding erythema. No appreciable rash on exposed skin, skin is warm and dry. Psych: Mood and affect is normal, memory and judgment is normal. Core Measures ACS in differential dx? No CVA/TIA Diagnosis: No Severe Sepsis Present: No Septic Shock Present: No (EFREN STANLEY,FRANCHESKA) Progress Differential Diagnoses I considered the following diagnoses in my evaluation of the patient: Hip fracture, pelvis fracture, muscle strain, herniated desk, kidney stone, UTI Plan of Care: Orders Procedure Date/time Status XRY-HIP 2-3 VIEWS, RIGHT 05/01 934 Active Diagnostic Imaging: Viewed by Me: Radiology Read. Discussed w/RAD: Radiology Read. Radiology Impression: PATIENT: KENZIE HIDALGO PRESENT AGE: 62 PATIENT ACCOUNT NO: [id number] : 56 LOCATION: [facility] ORDERING PHYSICIAN: FRANCHESKA STANLEY SERVICE DATE: 05/01/17 EXAM TYPE: RAD - XRY-HIP 2-3 VIEWS, RIGHT EXAMINATION: XR HIP, RIGHT CLINICAL INFORMATION: Pain. Evaluate for fracture. COMPARISON: None TECHNIQUE: Two views of the right hip. FINDINGS: There is chondrocalcinosis of. There is small subchondral cyst along the superior lateral acetabulum. Overall mild arthrosis. I do not see a fracture. IMPRESSION: No acute abnormality. I do not see a fracture. Mild arthrosis DICTATED BY: GARRICK RUBIN MD DATE/TIME DICTATED: 05/01/171036 PREPLEATER:JARRETT DATE/TIME TRANSCRIBED:05/01/171036 CONFIDENTIAL, DO NOT COPY WITHOUT APPROPRIATE AUTHORIZATION. Initial ED EKG: none Comments: Plan pain medication on arrival. Patient has no known direct injury to right hip. History of arthritis. Likely exacerbation of chronic pain. Will assess with x-ray. Patient informed of x-ray results. He'll continue taking daily pain medication as previously prescribed. Patient also reports that he taking muscle relaxers. He will continue those as well. History of acid reflux. Advised to use NSAIDs cautiously. (FRANCHESKA JANE) Departure Departure Time of Disposition: 1045 Disposition: HOME OR SELF CARE Condition: Stable Clinical Impression Primary Impression: Hip pain Qualifiers: Laterality: right Qualified Code: M25.551 - Pain in right hip Referrals: SHREYAS RODRIGUEZ DO (PCP/Family) Additional Instructions: Follow-up with your primary care physician call to make an appointment. Rest ice and elevate affected extremity. Continue taking daily pain medication as prescribed. Take muscle relaxer as prescribed. Avoid heavy lifting or senna movements. Return for worsening symptoms or concerns. Departure Forms: Customer Survey General Discharge Information (FRANCHESKA JANE) PA/BULB WEEDER Co-Sign Statement Statement: ED Attending supervision documentation- [] I saw and evaluated the patient. I have also reviewed all the pertinent lab results and diagnostic results. I agree with the findings and the plan of care as documented in the PA's/BULB WEEDER's documentation. [X] I have reviewed the ED Record and agree with the PA's/BULB WEEDER's documentation. [] Additions or exceptions (if any) to the PAs/BULB WEEDER's note and plan are summarized below: [] (ANNE TORO,JASS Busch) Critical Care Note Critical Care Note Critical Care Time: non-applicable (FRANCHESKA JANE)
[2017-05-01] MEDS ORDERED: ALBUTEROL2.5 MG/3 M INH/SOL (10:12)
[2017-05-01] MEDS ORDERED: PROAIR HFA8.5 GM INH (10:12)
[2017-05-01] MEDS ORDERED: ASPIRIN81 M4 PO (10:12)
[2017-05-01] MEDS ORDERED: DAILY MULTIPLE1 EACH PO (10:14)
[2017-05-01] MEDS ORDERED: MORPHINE SULFAT30 M7 PO (10:15)
--- NOTE | 2017-05-01 10:42 | RADIOLOGY REPORT ---
EXAMINATION: XR HIP, RIGHT CLINICAL INFORMATION: Pain. Evaluate for fracture. COMPARISON: None TECHNIQUE: Two views of the right hip. FINDINGS: There is chondrocalcinosis of. There is small subchondral cyst along the superior lateral acetabulum. Overall mild arthrosis. I do not see a fracture. IMPRESSION: No acute abnormality. I do not see a fracture. Mild arthrosis
== END 2017-05-01 10:55 ==
LOC: ERH 09:27
DX: M25.551 Pain in right hip (principal)
CPT/HCPCS: 73502-RT

== ENCOUNTER 2018-04-16 08:59 | Emergency (ER) | payer OTHER ==
[~2018-04-16] VITALS: Ht 177.8 cm; Wt 113.4 kg
[~2018-04-16 08:59] MED LIST changes: +ALBUTEROL2.5 MG/3 M INH/SOL; +ASPIRIN81 M4 PO; +DAILY MULTIPLE1 EACH PO; +MORPHINE SULFAT30 M7 PO; +PROAIR HFA8.5 GM INH
[2018-04-16 09:04] VITALS: BP 153/94
--- NOTE | 2018-04-16 09:42 | ED UPPER/LOWER EXTREMITY COMPL ---
History of Present Illness General Chief Complaint: Lower Extremity Problems Stated Complaint: ?FLUID ON KNEE Source: patient, old records Exam Limitations: no limitations Vital Signs & Intake/Output Vital Signs & Intake/Output Vital Signs Date Time Temp Pulse Resp B/P B/P Pulse O2 O2 Flow FiO2 Mean Ox Delivery Rate 04/16 1023 Room Air Room Air 04/16 0904 97.5 78 18 153/94 98 Room Air Allergies Coded Allergies: Penicillins (UNKNOWN SINCE CHILDHOOD 07/03/16) Reconcile Medications Albuterol Sulfate (Proair Hfa) 90 MCG HFA.AER.AD 2 PUF INH Q4-6 PRN PRN COPD (Reported) Albuterol Sulfate 2.5 MG/3 ML (0.083 %) VIAL.NEB 1 Vial INH/CUCA Q4P PRN COPD (Reported) Amlodipine Besylate 10 MG TABLET 1 TAB PO DAILY HTN (Reported) Aspirin (Aspirin*) 81 MG TAB.CHEW 1 TAB PO DAILY HEART HEALTH (Reported) Cyclobenzaprine HCl 10 MG TABLET 1 TAB PO D PAIN (Reported) Diclofenac W/ Misoprostol (Arthrotec 75 MG-200 Mcg Tab) 75 MG-200 MCG TAB.IR.DR 1 TAB PO BID ARTHRITIS (Reported) Gabapentin 100 MG CAPSULE 1 CAP PO TID NERVE PAIN (Reported) Metoprolol Succinate 100 MG TAB.ER.24H 1 TAB PO DAILY HTN (Reported) Morphine Sulfate 30 MG TABLET 1 TAB PO TID PAIN (Reported) Multivitamin (Daily Multiple Vitamin) 1 EACH TABLET 1 TAB PO DAILY VITAMIN SUPPORT (Reported) Pantoprazole Sodium 40 MG TABLET.DR 1 TAB PO DAILY GI (Reported) Pregabalin (Lyrica) 150 MG CAPSULE 1 CAP PO BID COPD (Reported) Core Measure Meds Pre-Hospital aspirin Triage Note: REQUESTING EVALUATION OF PAINFULL RIGHT KNEE. HE REPORTS HX OF FLUID ON THIS KNEE. HAD MENISCUS REPAIR IN DECEMBER. Triage Nurses Notes Reviewed? yes Onset: Last week Duration: day(s):, constant, continues in ED Timing: recent history Severity: moderate Pain/Injury Location: Right: Knee. Method of Injury: unknown Modifying Factors: Improves With: pain medication, rest. Worsens With: movement. Associated Symptoms: swelling, GCS 15 since HPI: 1 week prior to admission patient complains of increased swelling to the lower aspect of his right knee with sharp pain worse with range of motion ambulation. He denies trauma fever chills nausea vomiting diarrhea abdominal pain chest pain shortness breath headache dysuria rash bleeding. 4 months prior to admission he reports right meniscus repair. Past History Travel History Traveled to [place] past 21 day No Medical History Any Pertinent Medical History? see below for history Neurological: NONE EENT: NONE Cardiovascular: hypertension Respiratory: COPD Gastrointestinal: NONE Hepatic: NONE Renal: NONE Musculoskeletal: gout, ARTHRITIS KNEE ISSUES CCPD RIGHT KNEE Psychiatric: NONE Endocrine: NONE Blood Disorders: HEP C CIRRHOSIS Tetanus Vaccine: 08/20/14 Surgical History Surgical History: non-contributory Psychosocial History What is your primary language Faroese Tobacco Use: Current Daily Use Daily Tobacco Use Amount/Type: => 5 Cigarettes daily Family History Hx Contributory? No Review of Systems Review of Systems Constitutional: Reports: no symptoms. EENTM: Reports: no symptoms. Respiratory: Reports: no symptoms. Cardiovascular: Reports: no symptoms. Gastrointestinal/Abdominal: Reports: no symptoms. Genitourinary: Reports: no symptoms. Musculoskeletal: Reports: see HPI, joint pain, joint swelling. Skin: Reports: no symptoms. Neurological/Psychological: Reports: no symptoms. Hematologic/Endocrine: Reports: no symptoms. Immunological: Reports: no symptoms. All Other Systems: Reviewed and Negative Physical Exam Physical Exam General Appearance: well developed/nourished, alert, awake, anxious, mild distress, obese Head: atraumatic, normal appearance Eyes: Bilateral: normal appearance, PERRL, EOMI. Ears, Nose, Throat: normal pharynx, normal ENT inspection, hearing grossly normal Neck: normal inspection, supple, full range of motion, no midline tenderness Cardiovascular/Respiratory: normal breath sounds, normal peripheral pulses, regular rate/rhythm, no respiratory distress Peripheral Pulses: 4+ carotid (R), 4+ carotid (L) Back: normal inspection, normal range of motion, no vertebral tenderness Shoulder Left: normal range of motion, normal inspection Shoulder Right: normal range of motion, normal inspection Elbow Left: normal range of motion, normal inspection Elbow Right: normal range of motion, normal inspection Hand Left: normal inspection, normal range of motion Hand Right: normal inspection, normal range of motion Upper Extremity Reflexes: 2+: bicep (R), bicep (L). Leg Left: normal range of motion, normal inspection Leg Right: normal range of motion, normal inspection Hip Left: normal range of motion, normal inspection Hip Right: normal range of motion, normal inspection Knee Left: normal range of motion, normal inspection Knee Right: swelling, tenderness, soft tissue tenderness, limited range of motion Knee Ligaments Right: pain anterior drawer, pain posterior drawer, pain medial stress, pain lateral stress Foot Left: normal inspection, normal range of motion Foot Right: normal inspection, normal range of motion Lower Extremity Reflexes: 2+: knee (R), knee (L). Neurologic/Tendon: normal sensation, normal motor functions, normal tendon functions Skin: intact, normal color, warm/dry Lymphatic: no anterior cervical charbel Progress Differential Diagnosis: compartment syndrome, contusion, fracture, sprain Plan of Care: Orders Procedure Date/time Status XRY-KNEE COMPLETE RIGHT 04/16 919 Active Diagnostic Imaging: Viewed by Me: Radiology Read. Discussed w/RAD: Radiology Read. Radiology Impression: Degenerative changes. Small joint effusion. Comments: Updated patient with low likelihood of aspirating fluid from knee. He requests attempt. Departure Departure Time of Disposition: 1104 Disposition: HOME OR SELF CARE Condition: Stable Clinical Impression Primary Impression: Osteoarthritis of right knee Referrals: Flip Pringle DO (PCP/Family) Kelsie TORO,Baldom[facility] Jones Call for orthopedic follow up Departure Forms: Customer Survey General Discharge Information Prescriptions: Current Visit Scripts Hydrocodone/Acetaminophen (Bessie 5-325 Tablet) 1-2 TAB PO Q4-6 PRN PRN severe pain #15 TAB
[2018-04-16] MEDS ORDERED: CYCLOBENZAPRINE10 M1 PO (10:22)
--- NOTE | 2018-04-16 10:29 | RADIOLOGY REPORT ---
EXAMINATION: XR KNEE, RIGHT CLINICAL INFORMATION: Right knee pain COMPARISON: Lower leg x-ray March 2017 TECHNIQUE: Four views of the right knee. FINDINGS: Bone alignment is normal. No fracture or dislocation is seen. There is joint space narrowing and osteophyte formation at the medial femoral tibial joint. There is degenerative meniscal calcification seen medially and laterally. There are small osteophytes at the patellofemoral joint. There is a small joint effusion. There is soft tissue ossification projecting adjacent to the medial femoral condyle questionable for evidence of old trauma. There are small linear radiopaque densities projecting over the soft tissues over the proximal patellar tendon seen on the lateral view. Soft tissue findings are unchanged from March 2017 exam. IMPRESSION: Degenerative changes. Small joint effusion.
[2018-04-16] MEDS ORDERED: NORCO 5-325 TA1 EACH PO (11:11)
== END 2018-04-16 11:26 ==
LOC: ERH 08:59
DX: M17.11 Unilateral primary osteoarthritis, right knee (principal)
CPT/HCPCS: 73562-RT; J2001